=== PATIENT | male | born 1950 | race Caucasian/White ===

== ENCOUNTER 2018-02-27 10:41 | Emergency (ER) | payer OTHER, SELFPAY ==
[2018-02-27 10:42] VITALS: BP 135/70; PULSE 88; RESP 16; TEMP 36.9; O2SAT 98; BMI 25.7
--- NOTE | 2018-02-27 11:10 | RAD_ITS ---
STUDY: X-RAY CHEST REASON FOR EXAM: Male, 67 years old. Fever. Weight loss. TECHNIQUE: PA and lateral views of the chest. COMPARISON: None. FINDINGS: EKG electrodes are seen. The lungs are clear and expanded. There is no demonstrated pleural abnormality. Normal size heart. Normal mediastinum and giselle. Normal visualized pulmonary arteries. There is atherosclerotic tortuosity of the aortic arch and descending thoracic aorta. There are diffuse degenerative changes of the visualized thoracic spine. Normal visualized ribs, clavicles, and shoulders. There is no demonstrated abnormality of the visualized soft tissue structures of the upper abdomen. RAD/Chest PA and Lateral IMPRESSION: No acute abnormality is seen. Electronically Signed: Scott Marks MD at 12:14 EDT Tel [phone], Service support ,
[2018-02-27 11:16] LABS: Absolute Lymphocyte Count 1.69 X10^3/ul (0.83-4.51); Absolute Neutrophil Count 9.2 X10^3/uL (2.0-7.7); Basophil# 0.01 X10^3/uL; Basophil% 0.1 % (0-1); Eosinophil# 0.05 X10^3/uL; Eosinophils% 0.4 % (0-5); Hematocrit 34.9 % (40-54); Hemoglobin 11.4 g/dl (13.0-16.5); Lymphocyte # 1.69 X10^3/ul (4.0); Lymphocyte % 14.1 % (19-41); Mean Corp Hgb Conc 32.7 g/gl (32-36); Mean Corpuscular Hgb 28.6 pg (27.0-32.0); Mean Corpuscular Volume 87.7 fL (80-94); Mean Platelet Vol. 8.6 fl (6.2-12.0); Monocyte# 1.08 X10^3/uL; Neutrophil # 9.15 X10^3/uL (2.7-7.7); Neutrophil % 76.2 % (47-70); POSITIVE COUNT NO; POSITIVE DIFFERENTIAL NO; POSITIVE MORPHOLOGY NO; Platelet Count 335 K/mm3 (150-450); RBC Distribution Width CV 13.1 % (11.6-14.6); RBC Distribution Width SD 42.1 fl (35.1-43.9); Red Blood Count 3.98 M/mm3 (4.6-6.2)
--- NOTE | 2018-02-27 11:27 | ED.VISSUMM ---
- ER Visit Summary Date of Service: 02/27/18 Chief Complaint: Fever, chills, nausea History of Present Illness: The patient is a 67 M presents to the emergency department multiple complaints. Patient states over the past 3 weeks, has had intermittent fevers and chills. He recently went on a river boat cruise. He states when he got home, he began to have some sinus type symptoms. He states he had some facial pressure and mild headaches. He went to urgent care and was placed on amoxicillin and prednisone. He states he had 3 days of relief and then the symptoms returned. He presented again to urgent care last . His antibiotics were changed to Levaquin which he has been on. He states he still having fevers at night. He also admits to chills, sweats, nausea, and decreased appetite. He denies any trouble speaking or swallowing. He has had a scant cough. He does have remote history of smoking, but denies any diagnosis of cancer or underlying lung disease. He denies any recent dental work. He has no history of endocarditis. He has no history of IV drug abuse. Physical Examination: Vital signs reviewed General: Well-nourished, well-developed Head: Normocephalic, atraumatic Eyes: Pupils equal and reactive, extraocular muscles intact Neck, supple, no lymphadenopathy Heart: Regular rate and rhythm Respiratory: No distress, clear bilaterally Abdomen: Soft, nontender, nondistended, no peritoneal signs Back: Nontender Extremities: Nontender, no edema, no cords Skin: Normal color no rash Neuro: Alert and oriented, no focal or lateralizing deficits Test Results: [] Emergency Department Course and Treatment: The patient symptoms seem to worsen since he started Levaquin. He was a difficult time sleeping, change in appetite, and generalized malaise. IV was established. Screening labs were obtained and are relatively unremarkable. His very mild leukocytosis, but no significant shift. His chest x-ray shows no pneumonia or infectious process. His exam is comforting. However, given his age and spiking fevers for 3 weeks I did want to rule out occult malignancy. I did send the patient for CT of his chest abdomen and pelvis. This was relatively unremarkable without evidence of mass or other dangerous process. I do feel this may be more reaction to Levaquin, especially given his nausea and change in appetite along with his sweats and malaise. He has had Levaquin for 7 days. He also completed a full course of amoxicillin. I do feel the most prudent thing at this time would be to stop his antibiotic. I did discuss his workup with his primary care physician, Dr. Ferreira. He is comfortable with this plan of care. He will see the patient in the office early next week. He did correctional counselor/case manager the patient and family that if his symptoms worsen in any way that they should return immediately. They are comfortable with this plan of care and he will be discharged home. Treatment Plan: [] Disposition: Discharge Impression: 1. Fever 2. Generalized malaise This note was generated with [employer] dictation software. It may contain incorrect words, spelling, and punctuation that were not noted in review of the chart prior to signing ED Disposition - Plan for ED Patient: Chief Complaint: General Illness Instructions: ED Weakness [facility] – [place] Referrals: Jean Marie Ferreira [Primary Care Provider] - Additional Instructions: Stop taking the Levaquin.
[2018-02-27 11:30] LABS: ALB/GLOB Ratio 0.6 RATIO (0.9-2.4); AST(SGOT) 17 U/L (15-37); Alanine Aminotransfer ALT/SGPT 34 U/L (16-61); Albumin, Serum 2.9 g/dL (3.2-5.0); Alkaline Phosphatase 113 U/L (45-117); Anion Gap 7 (5-15); BUN 15 mg/dL (7-18); BUN/Creat Ratio 18.7 RATIO (10-20); Calcium,Total 9.4 mg/dL (8.5-10.1); Chloride 102 mmol/L (98-107); EST Glomerular Filtration Rate 102 mL/min (>60); Est Glom Filt Rate - Afr Amer 123 mL/min (>60); Estimated Creatinine Clearance 79.75 ml/min; Globulin 5.1 g/dL (2.2-4.2); Glucose 92 mg/dL (74-106); Potassium 3.8 mmol/L (3.5-5.1); Sodium Level 137 mmol/L (136-145)
[2018-02-27] MEDS: 0.9% Normal Saline 1,000 ML 1000 ML IV (11:32)
--- NOTE | 2018-02-27 11:34 | CT_ITS ---
STUDY: CT ABDOMEN AND PELVIS WITH CONTRAST REASON FOR EXAM: Male, 67 years old. Weight loss. Intermittent fevers and elevated white count. RADIATION DOSAGE (If Supplied By Facility): CTDIvol = ( 12.29 ) mGy, DLP = ( 1021.62 ) mGycm TECHNIQUE: Transaxial images were obtained from the dome of the diaphragm to the symphysis pubis without oral contrast. 100 ml of Isovue 300 contrast was administered. Sagittal and coronal images were reconstructed. Individualized dose optimization techniques were used for this CT. COMPARISON: None. FINDINGS: There is evidence of increased interstitial markings at the lung bases with areas of confluence and subpleural blebs. This is suggestive of scarring. Coronary artery calcification. 4 mm cyst in the right lobe of the liver in the region of the dome. There is also evidence of a 1.3 cm cyst in the left lobe of the liver. Normal gallbladder and extrahepatic biliary system. Normal spleen. There are pancreatic calcifications in the distribution of the ducts consistent with chronic pancreatitis. Normal bilateral adrenal glands. Normal right kidney. Normal left kidney. There is a small hiatal hernia. Normal small intestine. There are multiple colonic diverticula consistent with diverticulosis. The appendix is visualized and appears normal. There is diffuse atherosclerotic calcification of the abdominal aorta and its major visceral branches, without a demonstrated aneurysm. Normal inferior vena cava. There is borderline retroperitoneal lymphadenopathy with enlarged nodes no greater than 10mm in the short axis diameter. Normal urinary bladder. There is enlargement of the prostate gland. Indentation at the bladder base. There is a small umbilical hernia containing fat. There are diffuse degenerative changes of the visualized lumbar spine. CT/Abdomen/Pelvis W IV Cont ONLY IMPRESSION: Prostatic enlargement. Small hepatic cysts. Electronically Signed: Scott Marks MD at 12:44 EDT Tel [phone], Service support ,
--- NOTE | 2018-02-27 11:34 | CT_ITS ---
STUDY: CT CHEST WITH CONTRAST REASON FOR EXAM: Male, 67 years old. Weight loss. Cough. Intermittent fevers and elevated white count. RADIATION DOSAGE (If Supplied By Facility): CTDIvol = ( 12.29 ) mGy, DLP = ( 1021.62 ) mGycm TECHNIQUE: Transaxial imaging was performed following intravenous administration of 100 ml of Isovue 300 contrast material. Multiplanar coronal and sagittal images were reformatted. Individualized dose optimization techniques were used for this CT. COMPARISON: None. FINDINGS: Mild enlargement of the thyroid gland with the inhomogeneous appearance suggestive of goitrous enlargement. Correlation with ultrasound is recommended if clinically indicated. Mild degree of emphysematous changes. Small bulla in the left upper lobe. Mild increased interstitial markings with a subpleural blebs at the lung bases suggestive of scarring. There is no demonstrated pleural abnormality. There are calcifications of the coronary arteries. There are multiple small lymph nodes within the mediastinum, which are normal in size and morphology most compatible with reactive lymph hyperplasia. Normal hilar regions. Normal enhanced pulmonary arteries. There is atherosclerotic calcification of the aortic arch with tortuosity and elongation of the aortic arch and descending thoracic aorta. There are multi-level degenerative changes of the thoracic spine. Small hepatic cyst. CT/Chest WITH Contrast IMPRESSION: Mild degree of emphysematous changes. Findings suggestive of scarring in the lower lobes. Electronically Signed: Scott Marks MD at 12:55 EDT Tel [phone], Service support ,
[2018-02-27 11:49] LABS: Bacteria 0 SEEN /hpf (None Seen); Mucous, Urine 0 SEEN /hpf (<or=2+); Red Blood Cells-Urine 0 SEEN /hpf (0-5); White Blood Cells 0 SEEN /hpf (0-5)
[2018-02-27 11:59] LABS: Color, Urine Yellow (Yellow); Glucose, Dipstick Normal (Normal); Ketone-Dipstick Negative (Negative); Leukocyte Esterase-Dipstick Negative /ul (Negative); Nitrite-Dipstick Negative (Negative); Occult Blood-Urine Negative /ul (Negative); Protein-Dipstick Negative (Negative); Urine Bilirubin Dipstick Negative (Negative); Urine Clarity Sl. Cloudy (Clear); Urine Urobilinogen Normal (Normal)
[2018-02-27 12:10] LABS: Squamous Epithelial Cells - UA 0-5 SEEN /hpf (0-5)
[2018-02-27 13:12] VITALS: BP 123/64; PULSE 84; RESP 15; O2SAT 96
[2018-02-27 13:20] VITALS: BP 127/68; PULSE 83; RESP 17; O2SAT 96
--- NOTE | 2018-02-27 13:20 | ED.RN ---
REVIEWED D/C INSTRUCTIONS, FOLLOW UP CARE, AND S/S THAT WOULD WARRANT A RETURN TO THE ED WITH PT. PT VERBALIZED AN UNDERSTANDING AND DENIES FURTHER QUESTIONS FOR THIS RN. PT SKIN P/W/D, RESP EVEN AND UNLABORED, PT A&O X 3, NO DISTRESS NOTED. PT AMBULATED OUT OF ED, GAIT STEADY.
== END 2018-02-27 13:21 | disposition home or self-care (01) ==
LOC: ED 11:17
PROVIDERS: Emergency Provider Emergency Medicine; Family Provider Internal Medicine Infectious Disease; PCP Internal Medicine Infectious Disease
DX: R50.9 Fever, unspecified (principal); R53.81 Other malaise; R11.0 Nausea; R51 Headache; R05 Cough; I25.10 Atherosclerotic heart disease of native coronary artery without angina pectoris; I25.2 Old myocardial infarction; Z79.82 Long term (current) use of aspirin; Z79.02 Long term (current) use of antithrombotics/antiplatelets; Z87.891 Personal history of nicotine dependence
CPT/HCPCS: 71046; 71260; 74177; 80053; 81001; 85025; 87040; 96360; 96361; 99284; J7030; Q9967

== ENCOUNTER 2021-01-20 09:41 | Emergency (ER) | payer OTHER, SELFPAY ==
[2021-01-20 09:42] VITALS: BP 132/72; PULSE 67; RESP 18; TEMP 36.6; O2SAT 96; BMI 28.3
--- NOTE | 2021-01-20 10:07 | EKG12_ITS ---
Test Reason : FATIGUE Blood Pressure : / mmHG Vent. Rate : 062 BPM Atrial Rate : 062 BPM P-R Int : 204 ms QRS Dur : 070 ms QT Int : 388 ms P-R-T Axes : 044 019 035 degrees QTc Int : 393 ms Normal sinus rhythm Normal ECG Confirmed by SUMMER SHERMAN, CASSANDRA ([id number]), associate editor YOUNG TAYLOR ([id number]) on 01/23/2021 1:35:11 PM Referred By: BROCK/MAYUR Confirmed By:CASSANDRA WHEELER MD
--- NOTE | 2021-01-20 10:09 | EX.ED.DYSGE1 ---
HPI History of Present Illness Chief Complaint: Fatigue Informant: patient and spouse/S.O. Narrative Narrative: Patient is a 70-year-old male with history of coronary artery disease status post CABG in April 2020, presenting from home with for worsening weakness and cough. Patient has been feeling more weak for the past few weeks but is been more significant over the past few days. He states he does not have any strength now has a hard time even standing up or moving around because he feels so weak. Denies any focal weakness. Notes he had a mild cough for the past week that is been nagging. He states is intermittently productive but it also seems to be a shallow cough. He denies any chest pain or difficulty breathing. He Nuys any orthopnea dyspnea on exertion. He states he is been sleeping more. He denies any changes to appetite. No associated ruby pain, nausea or vomiting. No change in his bowel habits. States his stool has been dark the past couple days. Denies any fever. Denies any sick contacts. Did not receive his Covid vaccine. Has no swelling of his legs. Has had some increased urinary urgency for the past week but denies any dysuria or frequency. Is on Plavix and aspirin for coronary artery disease. [facility] Medical History (Updated 01/20/21 @ 16:[address] Billie Dunlap, ) Hyperlipidemia Hypertension Home Medications aspirin 81 mg PO DAILY@0800 02/27/18 [History Last Taken Unknown] clopidogrel 75 mg PO DAILY 02/27/18 [History Last Taken Unknown] atorvastatin 40 mg PO DAILY 01/20/21 [History Last Taken Unknown] metoprolol tartrate 25 mg PO DAILY 01/20/21 [History Last Taken Unknown] multivitamin [Multiple Vitamin] 1 tab PO DAILY 01/20/21 [History Last Taken Unknown] omega-3 fatty acids [Fish Oil] 500 mg PO DAILY 01/20/21 [History Last Taken Unknown] Allergy/AdvReac Type Severity Reaction Status Date / Time No Known Allergies Allergy Verified 01/20/21 09:45 Surgical History (Updated 01/20/21 @ 10:37 by Adia Zavala) Hx of CABG Hx of neck surgery Social History Smoking Status: Never smoker ROS ROS ED Constitutional Constitutional ED: Reports other Details: Fatigue ; Denies chills, fatigue, fever(s) or weakness Eyes Eyes: Denies blurry vision or other visual disturbances ENT ENT ED: Denies sore throat Cardiovascular Cardiovascular: Denies chest pain, orthopnea or palpitations Respiratory/Chest Respiratory/Chest: Reports cough; Denies dyspnea, dyspnea on exertion or orthopnea Gastrointestinal Gastrointestinal: Reports other Details: Dark stools ; Denies abdominal pain, nausea or vomiting Genitourinary Genitourinary ED: Reports other Details: Frequency ; Denies decreased urination, dysuria or hematuria Musculoskeletal Musculoskeletal: Reports other Details: no leg swelling ; Denies extremity pain Integumentary Denies new lesions or rash Neurologic Neurologic: Reports weakness; Denies paresthesias Psychiatric Psychiatric: Denies anxiety or depression Hematologic/Lymphatic Hematologic/Lymphatic: Denies easy bleeding or easy bruising EXAM Physical Exam Const Vital Signs: 01/20/21 09:42 01/20/21 10:36 01/20/21 14:00 Temperature 98 F 98 F 97.8 F Temperature Source Temporal Temporal Temporal Pulse Rate 67 67 65 Respiratory Rate 18 18 23 H Respiratory Effort Normal Non-Labored Respiratory Pattern Normal Blood Pressure 132/72 H 132/72 H 135/83 H Blood Pressure Mean 92 92 100 Pulse Ox 96 96 96 Oxygen Delivery Method Room Air Room Air Room Air 01/20/21 15:00 01/20/21 16:32 Temperature 98.6 F Temperature Source Temporal Pulse Rate 74 64 Respiratory Rate 21 H 17 Respiratory Effort Respiratory Pattern Blood Pressure 142/74 H 118/75 Blood Pressure Mean 96 Pulse Ox 95 96 Oxygen Delivery Method Room Air Positive well nourished, well developed and no apparent distress General Appearance ED: well developed HEENT Reports normocephalic and moist mucous membranes atraumatic; Negative for tenderness Nose: no nasal discharge General Ear: hearing grossly impaired External Ear: external ears normal Mouth ED: Yes moist mucous membranes abnormal Mouth: moist mucous membranes abnormal Eyes PERRL and EOMs intact bilaterally Neck full ROM, supple, no meningeal signs and no JVD Chest Wall inspection of chest normal Resp normal respiratory effort, normal air movement and clear to auscultation bilaterally Cardio regular rate, regular rhythm and no murmurs GI normal to inspection, nondistended, normoactive bowel sounds Extremity normal to inspection and full ROM General Extremety ED: Negative for edema General Extremity: Negative for edema Neuro oriented x3, no focal motor deficits and no sensory deficits noted Sensorium / Orientation: alert Motor Exam: strength 5/5 throughout and general weakness Psych mental status grossly normal and thought process normal Skin no rashes or lesions noted and no wounds MDM MDM MDM Narrative Medical decision making narrative: Patient is evaluated for vague sense of generalized weakness and fatigue. He has had a mild cough that is been nonproductive and worse over the past week. Patient does have a significant history of coronary artery disease status post CABG but denies any other symptoms or complaints. All lab work is largely unremarkable. He does have a mild elevation of his BNP of 141 however he does not appear to be fluid overloaded. This appears to be at his baseline. Troponin is negative. He does not have any acute EKG changes. He does not appear to have any acute infection. CMP is largely normal. He does have a mild elevation of the alkaline phosphatase which is nonspecific. Urinalysis is not consistent with infection. Chest x-ray shows mass in the right lower lobe and recommends further evaluation. Given his been having respiratory symptoms and fatigue I did obtain a CTA which did not show any PE but did show a soft tissue mass of the posterior medial aspect of the right lower lobe concerning for neoplastic process. Patient is informed of these findings. He is informed that he would need to follow-up outpatient with pulmonology. I did discuss with who will make sure he gets seen promptly. Patient is discharged to call the office on Saturday for the earliest available appointment. Case and findings also discussed with his daughter per the patient's request. At this time patient is able to ambulate does not have any respiratory distress. I think he is stable to go home and follow-up outpatient. Patient is counseled on signs and symptoms requiring return to the emergency room. Patient verbalizes agreement and understand this plan. Patient discharged home in stable and improved condition. Lab Data Labs: Laboratory Results - last 24 hr 01/20/21 01/20/21 01/20/21 10:30 10:30 10:30 WBC 7.8 RBC 4.49 L Hgb 12.9 L Hct 39.8 L MCV 88.6 MCH 28.7 MCHC 32.4 RDW Std Deviation 44.0 H RDW Coeff of Kee 13.5 Plt Count 317 MPV 9.2 Immature Gran % (Auto) 0.300 Neut % (Auto) 66.1 Lymph % (Auto) 19.9 Sanders % (Auto) 12.2 H Eos % (Auto) 1.2 Baso % (Auto) 0.3 Absolute Neuts (auto) 5.2 Absolute Lymphs (auto) 1.55 Nucleated RBC % 0 Sodium 136 Potassium 4.0 Chloride 104 Carbon Dioxide 28.0 Anion Gap 4 L BUN 17 Creatinine 0.84 Estim Creat Clear Calc 70.16 Est GFR (MDRD) Af Amer 115 Est GFR (MDRD) Non-Af 95 BUN/Creatinine Ratio 20.1 H Glucose 85 Calcium 9.2 Total Bilirubin 0.50 AST 24 ALT 22 Alkaline Phosphatase 118 H Total Creatine Kinase 76 Troponin I < 0.015 B-Natriuretic Peptide 141.9 H Total Protein 8.0 Albumin 3.3 Globulin 4.7 H Albumin/Globulin Ratio 0.7 L Urine Color Urine Clarity Urine pH Ur Specific [place] Urine Protein Urine Glucose (UA) Urine Ketones Urine Occult Blood Urine Nitrite Urine Bilirubin Urine Urobilinogen Ur Leukocyte Esterase Urine RBC Urine WBC Ur Squamous Epith Cells Urine Bacteria Urine Mucus 01/20/21 13:50 WBC RBC Hgb Hct MCV MCH MCHC RDW Std Deviation RDW Coeff of Kee Plt Count MPV Immature Gran % (Auto) Neut % (Auto) Lymph % (Auto) Sanders % (Auto) Eos % (Auto) Baso % (Auto) Absolute Neuts (auto) Absolute Lymphs (auto) Nucleated RBC % Sodium Potassium Chloride Carbon Dioxide Anion Gap BUN Creatinine Estim Creat Clear Calc Est GFR (MDRD) Af Amer Est GFR (MDRD) Non-Af BUN/Creatinine Ratio Glucose Calcium Total Bilirubin AST ALT Alkaline Phosphatase Total Creatine Kinase Troponin I B-Natriuretic Peptide Total Protein Albumin Globulin Albumin/Globulin Ratio Urine Color Yellow Urine Clarity Clear Urine pH 7.0 Ur Specific [place] 1.025 Urine Protein Negative Urine Glucose (UA) Normal Urine Ketones Negative Urine Occult Blood Negative Urine Nitrite Negative Urine Bilirubin Negative Urine Urobilinogen Normal Ur Leukocyte Esterase Negative Urine RBC 0 SEEN Urine WBC 0 SEEN Ur Squamous Epith Cells 0 SEEN Urine Bacteria 0 SEEN Urine Mucus 0 SEEN Radiography Chest X-Ray - ED: 1 View, Read by ED Physician, Read by Radiologist and - (Right lung mass) Diagnostic Testing: Radiology Impression Chest X-Ray 01/20/21 10:49 IMPRESSION: New 6 cm x 4.9 sono rounded mass in the medial aspect of the right lung base. Correlation with CT is recommended. Electronically Signed: Scott Marks MD at 11:27 EDT , Service support , Chest CTA 01/20/21 12:37 IMPRESSION: 4.3 cm x 5.7 cm x 6.7 cm soft tissue mass in the posterior medial aspect of the right lower lobe with enlargement of the right hilar and right medial standard lymph nodes as described. A neoplastic process should be ruled out. Electronically Signed: Scott Marks MD at 13:17 EDT , Service support , Rhythm Strip Rhythm Strip: Sinus Rhythm Rate: 62 Ectopy: None EKG Initial EKG: Attestation: I personally reviewed and interpreted this EKG as follows: Interpretation: Sinus Rhythm Comments: Normal sinus rhythm rate of 62 Normal axis Normal intervals Normal ST segments Discharge Plan Triage Chief Complaint: Fatigue ED Provider: Billie Dunlap Dx/Rx/DC Orders Clinical Impression: Mass of right lung Instructions: ED Weakness (Uncertain Cause) Prescriptions: No Action clopidogrel 75 MG tablet 75 mg PO DAILY RF: 0 aspirin 81 MG tablet,chewable 81 mg PO DAILY@0800 RF: 0 multivitamin [Multiple Vitamin] Tablet 1 tab PO DAILY RF: 0 atorvastatin 40 mg tablet 40 mg PO DAILY RF: 0 metoprolol tartrate 25 mg tablet 25 mg PO DAILY RF: 0 Fish Oil 500 mg Capsule 500 mg PO DAILY RF: 0 Primary Care Provider: Blane Holcomb Referrals: Kings Lamas MD [STAFF PHYSICIAN] - Blane Holcomb MD [Primary Care Provider] - Activity Restrictions/Additional Instructions: Call pulmonology office on Saturday to schedule appointment. There is a mass in your right lung that is concerning for lung cancer and needs to be evaluated further. More than likely they will call you with a have a cancellation to get you in as fast as possible. Disposition Disposition: Home, self care Discharge Date/Time: 01/20/21 16:33
[2021-01-20 10:36] VITALS: BP 132/72; PULSE 67; RESP 18; TEMP 36.6; O2SAT 96
[2021-01-20 10:48] LABS: Absolute Lymphocyte Count 1.55 X10^3/uL (0.83-4.51); Absolute Neutrophil Count 5.2 X10^3/uL (2.0-7.7); Basophil# 0.02 X10^3/uL; Basophil% 0.3 % (0-1); Eosinophil# 0.09 X10^3/uL; Eosinophils% 1.2 % (0-5); Hematocrit 39.8 % (40-54); Hemoglobin 12.9 g/dL (13.0-16.5); Lymphocyte # 1.55 X10^3/ul (0.83-4.51); Lymphocyte % 19.9 % (19-41); Mean Corp Hgb Conc 32.4 g/dL (32-36); Mean Corpuscular Hgb 28.7 pg (27.0-32.0); Mean Corpuscular Volume 88.6 fL (80-94); Mean Platelet Vol. 9.2 fl (6.2-12.0); Monocyte# 0.95 X10^3/uL; Monocyte% 12.2 % (0-10); NRBC Flagged by Analyzer 0 % (0-5); Neutrophil # 5.16 X10^3/uL (2.7-7.7); Neutrophil % 66.1 % (47-70); Platelet Count 317 K/mm3 (150-450); RBC Distribution Width CV 13.5 % (11.6-14.6); Red Blood Count 4.49 M/mm3 (4.6-6.2); White Blood Count 7.8 K/mm3 (4.4-11.0)
--- NOTE | 2021-01-20 10:49 | RAD_ITS ---
STUDY: X-RAY CHEST REASON FOR EXAM: Male, 70 years old. Cough TECHNIQUE: Single AP portable view of the chest. COMPARISON: Comparison is made with prior study dated 02/27/2018. FINDINGS: EKG electrodes are seen. There is now evidence of a 6 cm x 4.9 cm rounded mass in the medial aspect of the right lung base. Correlation with CT is recommended. There is no demonstrated pleural abnormality. Sternal cerclage wires and vascular clips are present from a prior sternotomy and coronary artery bypass graft procedure (CABG). Normal mediastinum and giselle. Normal visualized pulmonary arteries. There is atherosclerotic calcification of the aortic arch with tortuosity. There are degenerative changes of the visualized thoracic spine. Normal visualized ribs, clavicles, and shoulders. There is no demonstrated abnormality of the visualized soft tissue structures of the upper abdomen. RAD/Chest 1 View (Portable) IMPRESSION: New 6 cm x 4.9 sono rounded mass in the medial aspect of the right lung base. Correlation with CT is recommended. Electronically Signed: Scott Marks MD at 11:27 EDT , Service support ,
[2021-01-20 11:03] LABS: ALB/GLOB Ratio 0.7 RATIO (0.9-2.4); AST(SGOT) 24 U/L (15-37); Alanine Aminotransfer ALT/SGPT 22 U/L (16-61); Albumin, Serum 3.3 g/dL (3.2-5.0); Alkaline Phosphatase 118 U/L (45-117); Anion Gap 4 (5-15); BUN 17 mg/dL (7-18); BUN/Creat Ratio 20.1 RATIO (10-20); CPK Total, Creatine Kinase 76 U/L (39-308); Calcium,Total 9.2 mg/dL (8.5-10.1); Chloride 104 mmol/L (98-107); Creatinine, Serum 0.84 mg/dL (0.70-1.30); EST Glomerular Filtration Rate 95 mL/min (>60); Est Glom Filt Rate - Afr Amer 115 mL/min (>60); Estimated Creatinine Clearance 70.16 ml/min; Globulin 4.7 g/dL (2.2-4.2); Glucose 85 mg/dL (74-106); Sodium Level 136 mmol/L (136-145)
[2021-01-20 11:23] LABS: BNP,B-Type NATRIURETIC PEPTIDE 141.9 pg/mL (0-100)
--- NOTE | 2021-01-20 12:37 | CT_ITS ---
STUDY: CTA CHEST REASON FOR EXAM: Male, 70 years old. Fatigue, cough, lung mass RADIATION DOSAGE (If Supplied By Facility): CTDIvol = ( 11.60 ) mGy, DLP = ( 477.22 ) mGycm TECHNIQUE: The examination was performed with the intravenous administration of IV 100mL Isovue-300. Post-processing of the angiographic images was performed, with multiplanar reformation and 3D reconstruction. Individualized dose optimization techniques were used for this CT. COMPARISON: Comparison is made with prior chest radiograph done earlier in the day as well as prior CT scan of the thorax dated 02/27/2018. FINDINGS: Normal enhancement of the main pulmonary artery and right and left pulmonary arteries. Normal enhancement of the bilateral peripheral pulmonary arteries. There is no demonstrated pulmonary embolism. Normal thoracic aorta and visualized great vessels. There is no demonstrated aortic dissection. Normal heart and pericardium. There is evidence of enlarged subcarinal lymphadenopathy more prominent on the right side as well as enlargement of the right hilar lymph nodes. Mildly enlarged left pretracheal lymph node. Findings are in keeping with the neoplastic process and metastatic adenopathy. Normal visualized trachea and bronchi. The lungs are well expanded. There is a 4.3 cm x 5.7 cm x 6.7 cm rounded soft tissue mass in the posterior medial aspect of the right lower lobe. Mild degree of emphysematous changes and scarring at the lung bases. Normal pleura. Normal chest wall structures. There are degenerative changes of thoracic spine. Small hiatal hernia. CT/CTA Chest W/WO Contrast IMPRESSION: 4.3 cm x 5.7 cm x 6.7 cm soft tissue mass in the posterior medial aspect of the right lower lobe with enlargement of the right hilar and right medial standard lymph nodes as described. A neoplastic process should be ruled out. Electronically Signed: Scott Marks MD at 13:17 EDT , Service support ,
[2021-01-20 13:52] LABS: Bacteria 0 SEEN /hpf (None Seen); Mucous, Urine 0 SEEN /hpf (<or=2+); Red Blood Cells-Urine 0 SEEN /hpf (0-5); Squamous Epithelial Cells - UA 0 SEEN /hpf (0-5); White Blood Cells 0 SEEN /hpf (0-5)
[2021-01-20 13:55] LABS: Color, Urine Yellow (Yellow); Glucose, Dipstick Normal (Normal); Ketone-Dipstick Negative (Negative); Leukocyte Esterase-Dipstick Negative /ul (Negative); Nitrite-Dipstick Negative (Negative); Occult Blood-Urine Negative /ul (Negative); Protein-Dipstick Negative (Negative); Specific Gravity, Urine 1.025 (1.002-1.030); Urine Bilirubin Dipstick Negative (Negative); Urine Clarity Clear (Clear); Urine Urobilinogen Normal (Normal)
[2021-01-20 14:00] VITALS: BP 135/83; PULSE 65; RESP 23; TEMP 36.6; O2SAT 96
[2021-01-20 14:24] VITALS: O2SAT 97
[2021-01-20 15:00] VITALS: BP 142/74; PULSE 74; RESP 21; TEMP 37; O2SAT 95
[2021-01-20 16:32] VITALS: BP 118/75; PULSE 64; RESP 17; O2SAT 96
== END 2021-01-20 16:33 | disposition home or self-care (01) ==
PROVIDERS: Emergency Provider Emergency Medicine; PCP Internal Medicine
DX: R91.8 Other nonspecific abnormal finding of lung field (principal); I25.10 Atherosclerotic heart disease of native coronary artery without angina pectoris; I10 Essential (primary) hypertension; E78.5 Hyperlipidemia, unspecified; R53.1 Weakness; Z79.02 Long term (current) use of antithrombotics/antiplatelets; Z79.82 Long term (current) use of aspirin; Z79.899 Other long term (current) drug therapy; Z95.1 Presence of aortocoronary bypass graft
CPT/HCPCS: 71045; 71275; 80053; 81001; 82550; 83880; 84484; 85025; 87426; 93005; 99284; Q9967; A4216

== ENCOUNTER 2021-06-19 08:40 | Emergency (ER) | payer OTHER, SELFPAY ==
[2021-06-19 08:41] VITALS: BP 157/80; PULSE 112; RESP 31; TEMP 36.6; O2SAT 96; BMI 27.7
--- NOTE | 2021-06-19 09:11 | RAD_ITS ---
STUDY: X-RAY - PELVIS REASON FOR EXAM: Male, 70 years old. Injury/Pain TECHNIQUE: One view of the pelvis was obtained. COMPARISON: None. FINDINGS: There is a non-specific bowel gas pattern. Normal visualized soft tissue structures. Normal bilateral iliac wings, sacroiliac joints and visualized sacrum. Normal visualized bilateral superior and inferior pubic rami. Normal pubic symphysis. Normal ischial tuberosities. Normal visualized right femoral head. Normal right acetabulum. Normal right hip joint. Normal visualized left femoral head. Normal left acetabulum. Normal left hip joint. RAD/Pelvis 1 or 2 Views IMPRESSION: Normal x-ray examination of the pelvis. Electronically Signed: Martín Ojeda MD at 10:26 EST Tel , Service support ,
--- NOTE | 2021-06-19 09:12 | RAD_ITS ---
STUDY: X-RAY - RIGHT FEMUR REASON FOR STUDY: Male, 70 years old. Injury/Pain TECHNIQUE: 2 view(s) of the femur. COMPARISON: None. FINDINGS: Acute posteriorly angulated transverse fracture of the midshaft of the femur. In the region of the femur there is suggestion of an ill-defined lytic lesion worrisome for metastasis. In this patient with a history of lung cancer. Correlation with bone scan would be useful to evaluate for other lesions. Normal visualized soft tissue structure. RAD/Femur Min 2 Views IMPRESSION: Acute posteriorly angulated probable pathologic fracture of the midshaft of the right femur. Correlation with bone scan would be useful. MRI may also be useful. Electronically Signed: Martín Ojeda MD at 10:28 EST Tel , Service support ,
--- NOTE | 2021-06-19 09:12 | RAD_ITS ---
STUDY: X-RAY - RIGHT KNEE REASON FOR EXAM: Male, 70 years old. Injury/Pain TECHNIQUE: 2 view(s) of the knee. COMPARISON: None. FINDINGS: Acute laterally displaced transverse fracture of the midshaft of the right femur. Normal visualized proximal tibia and fibula. Normal proximal tibiofibular articulation. Normal medial femorotibial compartment. Normal lateral femorotibial compartment. Normal patellofemoral articulation. The soft tissue structures are unremarkable. RAD/Knee 1 or 2 Views IMPRESSION: Acute laterally displaced transverse fracture midshaft right femur. Electronically Signed: Martín Ojeda MD at 10:29 EST Tel , Service support ,
[2021-06-19] MEDS: Morphine 4 MG/ML Syringe IV (09:22)
--- NOTE | 2021-06-19 09:25 | ED.VIS.FALL ---
HPI HPI - Fall History of Present Illness Chief Complaint: Fall Narrative Narrative: Patient presents via EMS status post fall. His is at the bedside who provides further history. He has past medical history of lung carcinoma. There is a lesion on his right upper lip that had been removed but came back. His states that he has had metastatic lung cancer, and was hospitalized but has been home for the last 5 to 6 days. He was seen at the cancer center, and takes Lovenox injections for right lower extremity DVT with pulmonary emboli. She states that he was switched to a pill, but was still having pain from his DVT, so she over the last week she switched him back to Lovenox injections. He was on the commode today, and try to use his walker, he was transferring, and fell onto his right leg after it buckled from pain. She denies that he had any loss of consciousness. He did not strike his head. He denies any neck pain or other symptoms, but is having a lot of right lower extremity pain in his upper thigh and hip. He was unable to get up at home. [facility] Medical History Hyperlipidemia Hypertension Lung cancer Home Medications aspirin 81 mg PO DAILY@0800 02/27/18 [History Last Taken 06/19/21] enoxaparin 80 mg SUBCUT BID 06/19/21 [History Last Taken 06/18/21] levetiracetam 500 mg PO BID 06/19/21 [History Last Taken 06/19/21] megestrol 80 mg PO BID 06/19/21 [History Last Taken 06/18/21] morphine concentrate 10 mg PO Q4H PRN PRN 06/19/21 [History Last Taken 06/19/21] Allergy/AdvReac Type Severity Reaction Status Date / Time levofloxacin AdvReac Fever and Verified 06/19/21 08:46 skin rash Surgical History Hx of CABG Hx of neck surgery Social History Smoking Status: Never smoker ROS ROS ED ROS Narrative Constitutional: No fever, no chills. HEENT: No sore throat. No neck pain. No loss of vision. No rhinorrhea. Cardiovascular: No chest pain. No palpitations. No pedal edema. Respiratory: No cough, no shortness of breath. Abdominal: No abdominal pain. No nausea. No vomiting. Genitourinary: No dysuria. No hematuria. Musculoskeletal: No myalgias. Right hip and femur pain, worse with movement. Right lower extremity pain secondary to DVT. Neurologic: No headaches. No dizziness. No lightheadedness. Skin: No rash. No change in color. Psychiatric: No depression. No anxiety. EXAM Physical Exam Narrative Exam Narrative: Afebrile. Vital signs noted. HEENT: Normocephalic. Atraumatic. PERRL, EOMI. Neck soft and supple. No point tenderness or step off. Positive fungating lesion right upper lip, large in size. Cardiovascular: Regular rate and rhythm with intermittent tachycardia. No murmurs, rubs, or gallops appreciated. Respiratory: No tachypnea. Lungs clear to auscultation bilaterally. Gastrointestinal: Abdomen soft, nontender, with normoactive bowel sounds. No rebound or guarding. Neurological: Awake. Alert. Nonfocal, nonlateralizing. Skin: No rash. Normal color. No pallor. Musculoskeletal: No pedal edema. Pelvis stable. Positive tenderness to palpation diffusely right hip. Positive pain with logrolling of right femur. Diffuse tenderness to palpation right femur and right knee. Range of motion limited secondary to pain. Palpable dorsalis pedis pulse. EHL intact bilaterally.. Const Vital Signs: 06/19/21 08:41 06/19/21 11:45 06/19/21 13:24 Temperature 98 F 98.9 F Temperature Source Temporal Temporal Pulse Rate 112 H 115 H 89 Respiratory Rate 31 H 28 H 18 Respiratory Effort Normal Non-Labored Respiratory Depth Normal Respiratory Pattern Normal Blood Pressure 157/80 H 152/87 H 134/89 H Blood Pressure Mean 105 108 104 Pulse Ox 96 95 98 Oxygen Delivery Method Room Air Room Air Room Air MDM MDM MDM Narrative Medical decision making narrative: Concern for hip and/or femur fracture. Initially, he was administered morphine for analgesia. X-rays were obtained of the right hip and pelvis along with right femur and right knee. I reviewed his right femur x-ray which appears to have an angulated midshaft pathologic femur fracture. In discussion with his , they state that patient is to be nonoperative, and they would like a hospice consultation. Social work has seen the patient and he will be evaluated for hospice in the ED. Additionally, I added basic laboratory work and discussed the patient with orthopedics, Dr. Kt Fernandez. As the patient is nonoperative, he will be placed in a knee immobilizer which I think would be more comfortable than the hard splint that he has to lay on. He was given additional analgesia. His basic laboratories were reviewed and are grossly unremarkable suffer hemoglobin of 9.9. Social work is seen the patient in the ED and he will be evaluated by hospice in the ED also. told RN that she would like the patient observed at least overnight and perhaps go home in the morning with hospice in place. I had already discussed the patient with the hospitalist, Dr. Moscoso. Disposition is admit. Patient is in stable condition. Lab Data Attestation: I reviewed the patient's lab results. Labs: Laboratory Results - last 24 hr 06/19/21 06/19/21 06/19/21 08:50 08:50 08:50 WBC 9.2 RBC 3.66 L Hgb 9.9 L Hct 33.0 L MCV 90.2 MCH 27.0 MCHC 30.0 L RDW Std Deviation 65.2 H RDW Coeff of Kee 19.6 H Plt Count 445 MPV 9.1 Immature Gran % (Auto) 0.900 Neut % (Auto) 72.6 H Lymph % (Auto) 14.6 L Dane % (Auto) 11.4 H Eos % (Auto) 0.2 Baso % (Auto) 0.3 Absolute Neuts (auto) 6.6 Absolute Lymphs (auto) 1.34 Nucleated RBC % 0 Anisocytosis 1+ PT 15.6 H INR 1.3 APTT 33.8 Sodium 132 L Potassium 3.8 Chloride 97 L Carbon Dioxide 27.0 Anion Gap 8 BUN 7 Creatinine 0.76 Estim Creat Clear Calc 63.35 Est GFR (MDRD) Af Amer 129 Est GFR (MDRD) Non-Af 107 BUN/Creatinine Ratio 9.2 L Glucose 112 H Calcium 10.5 H Total Bilirubin 0.70 AST 121 H ALT 79 H Alkaline Phosphatase 150 H Troponin I High Sens 10 Total Protein 8.7 H Albumin 2.4 L Globulin 6.3 H Albumin/Globulin Ratio 0.4 L Blood Type Antibody Screen 11/08/21 10:20 WBC RBC Hgb Hct MCV MCH MCHC RDW Std Deviation RDW Coeff of Kee Plt Count MPV Immature Gran % (Auto) Neut % (Auto) Lymph % (Auto) Dane % (Auto) Eos % (Auto) Baso % (Auto) Absolute Neuts (auto) Absolute Lymphs (auto) Nucleated RBC % Anisocytosis PT INR APTT Sodium Potassium Chloride Carbon Dioxide Anion Gap BUN Creatinine Estim Creat Clear Calc Est GFR (MDRD) Af Amer Est GFR (MDRD) Non-Af BUN/Creatinine Ratio Glucose Calcium Total Bilirubin AST ALT Alkaline Phosphatase Troponin I High Sens Total Protein Albumin Globulin Albumin/Globulin Ratio Blood Type B POSITIVE Antibody Screen NEGATIVE Radiography Diagnostic Testing: Clinical Impression(s) from Imaging Studies Pelvis X-Ray 06/19/21 09:11 IMPRESSION: Normal x-ray examination of the pelvis. Electronically Signed: Martín Ojeda MD at 10:26 EST Tel , Service support , Femur X-Ray 06/19/21 09:12 IMPRESSION: Acute posteriorly angulated probable pathologic fracture of the midshaft of the right femur. Correlation with bone scan would be useful. MRI may also be useful. Electronically Signed: Martín Ojeda MD at 10:28 EST Tel , Service support , Knee X-Ray 06/19/21 09:12 IMPRESSION: Acute laterally displaced transverse fracture midshaft right femur. Electronically Signed: Martín Ojeda MD at 10:29 EST Tel , Service support , Chest X-Ray 06/19/21 10:14 IMPRESSION: Suspect worsening right lower lobe bronchogenic carcinoma. Correlation with CT with contrast would be useful. Electronically Signed: Martín Ojeda MD at 10:30 EST Tel , Service support , Discharge Plan Triage Chief Complaint: Fall ED Provider: Epifanio Munoz Dx/Rx/DC Orders Prescriptions: No Action aspirin 81 MG tablet,chewable 81 mg PO DAILY@0800 RF: 0 morphine concentrate 100 mg/5 mL (20 mg/mL) solution 10 mg PO Q4H PRN PRN (Reason: Pain) RF: 0 levetiracetam 500 mg tablet 500 mg PO BID RF: 0 enoxaparin 80 mg/0.8 mL syringe 80 mg subcut BID RF: 0 megestrol 40 mg tablet 80 mg PO BID RF: 0 Primary Care Provider: Blane Holcomb
--- NOTE | 2021-06-19 10:14 | RAD_ITS ---
STUDY: X-RAY CHEST REASON FOR EXAM: Male, 70 years old. CAD TECHNIQUE: Single AP portable view of the chest. COMPARISON: 01/20/2021 FINDINGS: Status post median sternotomy. The patient is rotated to the right. Market enlargement of the mass in the lower right lung worrisome for worsening bronchiectatic carcinoma. There is no demonstrated pleural abnormality. Normal size heart. Normal mediastinum and giselle. Normal visualized pulmonary arteries. Normal visualized aortic arch and descending thoracic aorta. Normal visualized thoracic spine. Normal visualized ribs, clavicles, and shoulders. There is no demonstrated abnormality of the visualized soft tissue structures of the upper abdomen. RAD/Chest 1 View (Portable) IMPRESSION: Suspect worsening right lower lobe bronchogenic carcinoma. Correlation with CT with contrast would be useful. Electronically Signed: Martín Ojeda MD at 10:30 EST Tel , Service support ,
[2021-06-19 10:21] LABS: Absolute Lymphocyte Count 1.34 X10^3/uL (0.83-4.51); Absolute Neutrophil Count 6.6 X10^3/uL (2.0-7.7); Basophil# 0.03 X10^3/uL; Basophil% 0.3 % (0-1); Eosinophil# 0.02 X10^3/uL; Eosinophils% 0.2 % (0-5); Hemoglobin 9.9 g/dL (13.0-16.5); Lymphocyte # 1.34 X10^3/ul (0.83-4.51); Lymphocyte % 14.6 % (19-41); Mean Corpuscular Volume 90.2 fL (80-94); Mean Platelet Vol. 9.1 fl (6.2-12.0); Monocyte# 1.04 X10^3/uL; Monocyte% 11.4 % (0-10); NRBC Flagged by Analyzer 0 % (0-5); Neutrophil # 6.64 X10^3/uL (2.7-7.7); Neutrophil % 72.6 % (47-70); POSITIVE MORPHOLOGY YES; Platelet Count 445 K/mm3 (150-450); RBC Distribution Width CV 19.6 % (11.6-14.6); RBC Distribution Width SD 65.2 fl (35.1-43.9); Red Blood Count 3.66 M/mm3 (4.6-6.2); White Blood Count 9.2 K/mm3 (4.4-11.0)
[2021-06-19 10:26] LABS: International Normalized Ratio 1.3; Prothrombin Time (Protime)PT. 15.6 SECONDS (11.7-14.9)
[2021-06-19 10:27] LABS: Differential Indicated SCAN CRITERIA MET; Partial Thromboplast Time 33.8 Seconds (24.1-36.2)
[2021-06-19 10:40] LABS: ALB/GLOB Ratio 0.4 RATIO (0.9-2.4); AST(SGOT) 121 U/L (15-37); Alanine Aminotransfer ALT/SGPT 79 U/L (16-61); Albumin, Serum 2.4 g/dL (3.2-5.0); Alkaline Phosphatase 150 U/L (45-117); Anion Gap 8 (5-15); BUN 7 mg/dL (7-18); BUN/Creat Ratio 9.2 RATIO (10-20); Calcium,Total 10.5 mg/dL (8.5-10.1); Chloride 97 mmol/L (98-107); Creatinine, Serum 0.76 mg/dL (0.70-1.30); EST Glomerular Filtration Rate 107 mL/min (>60); Est Glom Filt Rate - Afr Amer 129 mL/min (>60); Estimated Creatinine Clearance 63.35 ml/min; Globulin 6.3 g/dL (2.2-4.2); Glucose 112 mg/dL (74-106); Potassium 3.8 mmol/L (3.5-5.1); Protein, Total 8.7 g/dL (6.4-8.2); Sodium Level 132 mmol/L (136-145); Troponin-I HS 10 pg/mL (3.0-78.0)
--- NOTE | 2021-06-19 10:56 | CM.ED ---
SOCIAL WORK Referral Source: Nursing Reason for Consult: Hospice referral Met with patient's in room. requesting referral to [facility]. Dr. Munoz in agreement with Hospice consult. Call to [facility]. Referral faxed. Liaison to be in to meet with patient and . Staff updated. Bushra Alexander MSW, CONVENTION PLANNER
[2021-06-19 11:00] LABS: Anisocytosis 1+
--- NOTE | 2021-06-19 11:12 | NURSING ---
MED SURG FEMUR FX [facility]
--- NOTE | 2021-06-19 11:15 | NURSING ---
PATIENT NOT TO BE ADMITTED UNTIL HOSPICE EVALUATES HIM
[2021-06-19] MEDS: HYDROmorphone 0.5 MG/0.5 ML SYRINGE IV ×3 (11:35→15:47)
--- NOTE | 2021-06-19 11:36 | NURSING ---
HOSPICE HERE FOR PATIENT
--- NOTE | 2021-06-19 11:40 | ED.RN ---
[facility] CONTACTED FOR KNEE IMMOBILIZER
[2021-06-19 11:45] VITALS: BP 152/87; PULSE 114; PULSE 115; RESP 26; RESP 28; TEMP 37.2; O2SAT 95
--- NOTE | 2021-06-19 12:20 | ED.RN ---
THIS NURSE SPOKE WITH HOSPICE NURSE AND , WANTS THE PT ADMITTED TO [facility] TODAY AND GO WITH HOSPICE TOMORROW
--- NOTE | 2021-06-19 12:33 | HP.PCM.HOS_ITS ---
HPI - General HPI Narrative ANNELISE COOK, is a 70 M who presents [facility] Medical History (Updated 06/19/21 @ 08:42 by Adia Zavala) Hyperlipidemia Hypertension Lung cancer Home Medications aspirin 81 mg PO DAILY@0800 02/27/18 [History Last Taken Unknown] clopidogrel 75 mg PO DAILY 02/27/18 [History Last Taken Unknown] atorvastatin 40 mg PO DAILY 01/20/21 [History Last Taken Unknown] metoprolol tartrate 25 mg PO DAILY 01/20/21 [History Last Taken Unknown] multivitamin [Multiple Vitamin] 1 tab PO DAILY 01/20/21 [History Last Taken Unknown] omega-3 fatty acids [Fish Oil] 500 mg PO DAILY 01/20/21 [History Last Taken Unknown] enoxaparin 80 mg SUBCUT BID 06/19/21 [History Last Taken Unknown] levetiracetam 500 mg PO BID 06/19/21 [History Last Taken Unknown] megestrol 80 mg PO BID 06/19/21 [History Last Taken Unknown] morphine concentrate 10 mg PO Q4H PRN PRN 06/19/21 [History Last Taken Unknown] Allergy/AdvReac Type Severity Reaction Status Date / Time levofloxacin AdvReac Fever and Verified 06/19/21 08:46 skin rash Surgical History Hx of CABG Hx of neck surgery Social History Smoking Status: Never smoker Vital Signs Vital Signs Vital Signs: 06/19/21 08:41 06/19/21 11:45 Temperature 98 F 98.9 F Temperature Source Temporal Temporal Pulse Rate 112 H 115 H Respiratory Rate 31 H 28 H Respiratory Effort Normal Non-Labored Respiratory Depth Normal Respiratory Pattern Normal Blood Pressure 157/80 H 152/87 H Blood Pressure Mean 105 108 Pulse Ox 96 95 Oxygen Delivery Method Room Air Room Air Weight Weight: 80.3 kg Body Mass Index (BMI) 27.7 Results Lab / Micro Data Result Diagrams: 06/19/21 08:50 06/19/21 08:50 Labs: Laboratory Results - last 24 hr 06/19/21 08:50: WBC 9.2, RBC 3.66 L, Hgb 9.9 L, Hct 33.0 L, MCV 90.2, MCH 27.0, MCHC 30.0 L, RDW Std Deviation 65.2 H, RDW Coeff of Kee 19.6 H, Plt Count 445, MPV 9.1, Immature Gran % (Auto) 0.900, Neut % (Auto) 72.6 H, Lymph % (Auto) 14.6 L, [place] % (Auto) 11.4 H, Eos % (Auto) 0.2, Baso % (Auto) 0.3, Absolute Neuts (auto) 6.6, Absolute Lymphs (auto) 1.34, Nucleated RBC % 0, Anisocytosis 1+ 06/19/21 08:50: PT 15.6 H, INR 1.3, APTT 33.8 06/19/21 08:50: Sodium 132 L, Potassium 3.8, Chloride 97 L, Carbon Dioxide 27.0, Anion Gap 8, BUN 7, Creatinine 0.76, Estim Creat Clear Calc 63.35, Est GFR (MDRD) Af Amer 129, Est GFR (MDRD) Non-Af 107, BUN/Creatinine Ratio 9.2 L, Glucose 112 H, Calcium 10.5 H, Total Bilirubin 0.70, AST 121 H, ALT 79 H, Alkaline Phosphatase 150 H, Troponin I High Sens 10, Total Protein 8.7 H, Albumin 2.4 L, Globulin 6.3 H, Albumin/Globulin Ratio 0.4 L 06/19/21 10:20: Blood Type B POSITIVE, Antibody Screen NEGATIVE Micro: Microbiology 06/19/21 10:18 Nasal Secretion SARS-CoV-2 Antigen (Rapid) - Final Radiology Impression Pelvis X-Ray 06/19/21 09:11 IMPRESSION: Normal x-ray examination of the pelvis. Electronically Signed: Martín Ojeda MD at 10:26 EST Tel , Service support , Femur X-Ray 06/19/21 09:12 IMPRESSION: Acute posteriorly angulated probable pathologic fracture of the midshaft of the right femur. Correlation with bone scan would be useful. MRI may also be useful. Electronically Signed: Martín Ojeda MD at 10:28 EST Tel , Service support , Knee X-Ray 06/19/21 09:12 IMPRESSION: Acute laterally displaced transverse fracture midshaft right femur. Electronically Signed: Martín Ojeda MD at 10:29 EST Tel , Service support , Chest X-Ray 06/19/21 10:14 IMPRESSION: Suspect worsening right lower lobe bronchogenic carcinoma. Correlation with CT with contrast would be useful. Electronically Signed: Martín Ojeda MD at 10:30 EST Tel , Service support ,
--- NOTE | 2021-06-19 12:54 | CM.ED ---
Addendum entered by Laila Alexander 06/19/21 14:33: Deisy here and Hospice paperwork completed. Deisy states DME to be delivered to patient's home at 5pm. Call to [facility], transport scheduled for a 5pm merchandise pickup/receiving associate and requested patient's be able to ride along. Worker states it will be up to the drivers. Will update patient and . Addendum entered by Laila Alexander 06/19/21 13:27: Spoke with Deisy with Hospice. Deisy reports will be in to complete paperwork in the next 15-20 minutes. Deisy states put in STAT order for hospital bed and they have 4 hours to complete the order. Nursing staff updated. Original Note: SOCIAL WORK This worker met with patient's in room to discuss plan for Hospice. Hospitalist to room and discussed options. spoke with family and reports plan is for home today with Hospice. states once to obtain hospital bed before transport is arranged. Call to [facility] to update on the above. Awaiting call back at this time. Bushra Alexander, POLYGRAPH OPERATOR, NURSE CONSULTANT
[2021-06-19 13:24] VITALS: BP 134/89; PULSE 89; RESP 18; O2SAT 98
[2021-06-19 15:44] VITALS: BP 140/85
== END 2021-06-19 17:17 | disposition hospice, home (50) ==
PROVIDERS: Emergency Provider Emergency Medicine; PCP Internal Medicine
DX: M84.451A Pathological fracture, right femur, initial encounter for fracture (principal); W19.XXXA Unspecified fall, initial encounter; Y93.9 Activity, unspecified; Y92.9 Unspecified place or not applicable; I10 Essential (primary) hypertension; C34.90 Malignant neoplasm of unspecified part of unspecified bronchus or lung; E78.5 Hyperlipidemia, unspecified; I25.10 Atherosclerotic heart disease of native coronary artery without angina pectoris; Z86.711 Personal history of pulmonary embolism; Z86.718 Personal history of other venous thrombosis and embolism; Z79.82 Long term (current) use of aspirin; Z79.899 Other long term (current) drug therapy
CPT/HCPCS: 51702; 71045; 72170; 73552; 73560; 80053; 84484; 85025; 85610; 85730; 86850; 86900; 86901; 87426; 96374; 96375; 96376; 99285; A4216